=== PATIENT | female | born 1990 | race Caucasian/White ===

== ENCOUNTER 2023-08-25 11:24 | Outpatient (OUT) | payer OTHER, SELFPAY ==
[2023-08-25 11:52] LABS: Basophils Percent Auto 0.3 % (0.2-2.0); Eosinophils Absolute Auto 0.1 10^3/uL (0.0-0.7); Eosinophils Percent Auto 0.9 % (0.9-7.0); Hematocrit 43.9 % (36.0-48.0); Hemoglobin 14.5 g/dL (12.0-16.0); Immature Granulocytes Abs Auto 0.04 10^3/uL (0.00-0.03); Immature Granulocytes Pct Auto 0.4 % (0.0-0.5); Lymphocytes Absolute Auto 2.3 10^3/uL (1.2-3.8); Lymphocytes Percent Auto 24.8 % (20.5-60.0); Mean Corpuscular Hemoglobin 30.7 pg (26.7-34.0); Monocytes Absolute Auto 0.7 10^3/uL (0.3-0.8); Monocytes Percent Auto 6.9 % (1.7-12.0); Neutrophils Absolute Auto 6.3 10^3/uL (1.4-6.5); Neutrophils Percent Auto 66.7 % (43.0-75.0); Platelet Count 214 10^3/uL (150-450); Red Blood Count 4.72 10^6/uL (4.20-5.40); Red Cell Distribution Width 12.2 % (11.0-15.0); White Blood Count 9.4 10^3/uL (4.0-11.0)
[2023-08-25 14:36] LABS: Estimated Average Glucose 103 mg/dL; Glycohemoglobin A1C 5.2 % (4.5-6.2)
[2023-08-25 16:20] LABS: Alanine Aminotransferase 66 U/L (14-59); Albumin Globulin Ratio 1.1; Albumin Level 3.8 g/dL (3.4-5.0); Alkaline Phosphatase 88 U/L (46-116); Anion Gap 11.5; Aspartate Amino Transferase 33 U/L (15-37); BUN Creatinine Ratio 13.1; Bilirubin Total 0.6 mg/dL (0.2-1.0); Calcium 8.7 mg/dL (8.5-10.1); Carbon Dioxide 27.7 mmol/L (21.0-32.0); Chloride 104 mmol/L (98-107); Chol HDL Ratio 4.6; Cholesterol 254 mg/dL (<=200); Estimated GFR (African America >60 (>=60); Estimated GFR (Non-African Ame >60 (>=60); Free T3 2.33 pg/mL (2.18-3.98); Globulin 3.6 g/dL; Glucose 85 mg/dL (74-106); HDL Cholesterol 55 mg/dL (40-60); Potassium 4.2 mmol/L (3.5-5.1); Sodium 139 mmol/L (136-145); Thyroid Stimulating Hormone 2.559 uIU/mL (0.358-3.740); Total Protein 7.4 g/dL (6.4-8.2); Triglycerides 166 mg/dL (<=150); VLDL CHOLESTEROL 33.2 mg/dL
[2023-08-26 06:09] LABS: Insulin 27.1 uIU/mL (2.6-24.9)
== END 2023-08-25 11:25 | disposition home or self-care (01) ==
LOC: LAB 11:28
PROVIDERS: PCP Nurse Practitioner Family; Visit Provider Nurse Practitioner Family
DX: Z00.00 Encounter for general adult medical examination without abnormal findings (principal)
CPT/HCPCS: 36415; 80053; 80061; 83036; 83525; 84436; 84443; 84481; 85025

== ENCOUNTER 2024-01-21 11:10 | Outpatient (OUT) | payer OTHER, SELFPAY ==
--- NOTE | 2024-01-21 11:32 | XR_ITS ---
[address] [address] Patient Name: VALARIE ROBLEDO MRN: [id number] date: 1990 Sex: F Assigned Patient Location: [facility] Current Patient Location: Accession/Order Number: [id number] Exam Date: 01/21/2024 11:35 Report Date: 01/22/2024 07:48 At the request of: JOHN PEGUERO Procedure: XR chest 2V PROCEDURE: XR chest 2V DATE: 01/21/2024 11:35 AM EST COMPARISONS: None. CLINICAL INDICATION: 33 years Female Preop exam FINDINGS: The cardiomediastinal silhouette and pulmonary vasculature are within normal limits. The lungs are clear. There is no evidence of pleural effusion or pneumothorax. XR/XR chest 2V IMPRESSION: Chest radiograph is within normal limits. Electronically authenticated by: ONOFRE SOMMERS Date: 01/22/2024 07:48
== END 2024-01-21 11:11 | disposition home or self-care (01) ==
LOC: PST 11:11
PROVIDERS: PCP Nurse Practitioner Family; Visit Provider Obstetrics & Gynecology
DX: Z01.810 Encounter for preprocedural cardiovascular examination (principal); Z30.2 Encounter for sterilization; Z01.419 Encounter for gynecological examination (general) (routine) without abnormal findings
CPT/HCPCS: 71046; 87624; 88175

== ENCOUNTER 2024-01-21 20:09 | Outpatient (REF) | payer OTHER, SELFPAY | END 2024-01-21 20:10 | disposition home or self-care (01) | LOC: LAB 20:09 | PROVIDERS: PCP Nurse Practitioner Family; Visit Provider Physician Assistant | DX: Z01.419 Encounter for gynecological examination (general) (routine) without abnormal findings (principal) | CPT/HCPCS: 87624; 88175 ==

== ENCOUNTER 2024-01-27 06:12 | Day surgery (SDC) | payer OTHER, SELFPAY ==
[2024-01-21 11:38] VITALS: BP 115/80; PULSE 73; TEMP 36.2; O2SAT 99; BMI 36.9
[2024-01-27] VITALS (9 sets, daily range): BP systolic 107–165; BP diastolic 75–104; PULSE 70–102; TEMP 36.1–36.7; O2SAT 90–99; BMI 36.5
[2024-01-27 06:22] LABS: Basophils Absolute Auto 0.1 10^3/uL (0.0-0.1); Basophils Percent Auto 0.5 % (0.2-2.0); Eosinophils Absolute Auto 0.1 10^3/uL (0.0-0.7); Eosinophils Percent Auto 0.9 % (0.9-7.0); Hematocrit 39.4 % (36.0-48.0); Hemoglobin 13.1 g/dL (12.0-16.0); Immature Granulocytes Abs Auto 0.03 10^3/uL (0.00-0.03); Immature Granulocytes Pct Auto 0.3 % (0.0-0.5); Lymphocytes Absolute Auto 3.3 10^3/uL (1.2-3.8); Lymphocytes Percent Auto 32.8 % (20.5-60.0); Mean Corpuscular HGB Conc 33.2 g/dL (29.9-35.2); Mean Corpuscular Hemoglobin 30.8 pg (26.7-34.0); Mean Corpuscular Volume 92.7 fL (81.0-99.0); Mean Platelet Volume 11.1 fL (9.5-13.5); Monocytes Absolute Auto 0.7 10^3/uL (0.3-0.8); Monocytes Percent Auto 6.7 % (1.7-12.0); Neutrophils Absolute Auto 5.8 10^3/uL (1.4-6.5); Neutrophils Percent Auto 58.8 % (43.0-75.0); Platelet Count 190 10^3/uL (150-450); Red Blood Count 4.25 10^6/uL (4.20-5.40); Red Cell Distribution Width 12.4 % (11.0-15.0); White Blood Count 9.9 10^3/uL (4.0-11.0)
[2024-01-27 06:42] LABS: HCG Quantitative <1 mIU/mL
[2024-01-27] MEDS: LACTATED RINGER'S SOLUTION 1,000 ML 50 ML IV (06:52)
--- NOTE | 2024-01-27 08:22 | PM.ONB ---
Brief Operative Note Date of procedure: 01/27/24 Pre-op diagnosis general: desires permanent sterilization, multiparity Post-op diagnosis: same as pre-op Procedure: NAME OF PROCEDURE: robotic assisted bilateral laparoscopic salpingectomy PROCEDURE: The patient was taken back to the Operating Room where she was given general anesthesia without difficulty. She was then prepped and draped in the normal sterile fashion after being placed in a dorsal lithotomy position. A wet sponge stick was placed into the patient's vagina. Attention was then turned to the patient's abdomen, where a scalpel was used to make a small infraumbilical incision. The S retractors were then used to dissect the underlying layers until the fascia could be seen. The fascia was then grasped with Min clamps and tented up. A knife was then used to make a small incision to the fascia. The muscle was identified, at that time two sutures of #0 Vicryl on a GI needle was then used and placed through the fascia. the peritoneum was then identified and entered bluntly. The 10-4 Nai was then placed into the patient's abdomen. This was confirmed with direct visualization of the bowel, using the laparoscope. The patient's abdomen was then insufflated using approximately 4 liters of CO2 gas. Survey of the patient's abdomen demonstrated ovaries were normal in appearance as well as both tubes and uterus. A second and third rt and lt lateral robotic ports which were 8 mm in size, was then placed after the skin incision was made under direct visualization . the robotic arms were engaged. The patient's tube on the patient's right side was identified and tented up using a grasper, the ligasure apparatus was then used to come across the mesosalpingx from the fimbriated end to the insertion site at the uterus, the tube was then amputated and removed in its entirety. This was done on the contralateral side. The tubes were the removed from the patients abdomen. Excellent hemostasis was noted. The lateral ports were then moved under direct visualization with excellent hemostasis. All instruments were removed from the patient's abdomen. The fascia was closed using the #0 Vicryl on GI needle. The skin was closed using 4-0 Vicryl subcuticularly. All instruments were removed from the patient's vagina as well. The patient was taken out of the dorsal lithotomy position and placed in the supine position and taken to recovery in stable condition. Sponge, lap and needle counts were correct x2. Anesthesia: LIANGA Surgeon: Nas Redman Electrical And Electronic Assembler: Shari Mejia Estimated blood loss (mL): 5 Pathology: other (tubes) Condition: stable Disposition: PACU Urinary Catheter Management Urinary Catheter Management Urethral: Cath placed during this visit: no
[2024-01-27] MEDS: LACTATED RINGER'S SOLUTION 1,000 ML 150 ML IV (09:29)
--- NOTE | 2024-01-27 09:53 | PC.NURSE ---
Up to bathroom and unable to void
--- NOTE | 2024-01-27 10:14 | PC.NURSE ---
Denies urge to void
--- NOTE | 2024-01-27 10:35 | PC.NURSE ---
Voided clear yellow without difficulty
== END 2024-01-27 10:37 | disposition home or self-care (01) ==
PROVIDERS: PCP Nurse Practitioner Family; Visit Provider Obstetrics & Gynecology
PROC: (CPT 840; principal; 2024-01-27 07:30)
DX: Z30.2 Encounter for sterilization (principal); F41.0 Panic disorder [episodic paroxysmal anxiety]; Z79.899 Other long term (current) drug therapy; Z87.891 Personal history of nicotine dependence
CPT/HCPCS: 58661; 36415; 84702; 85025; 88302; J1100; J1885; J2250; J2405; J2704; J2710; J3010

== ENCOUNTER 2024-05-31 10:50 | Outpatient (OUT) | payer OTHER, SELFPAY ==
[2024-05-31 11:15] LABS: Basophils Absolute Auto 0.1 10^3/uL (0.0-0.1); Basophils Percent Auto 0.7 % (0.2-2.0); Eosinophils Absolute Auto 0.1 10^3/uL (0.0-0.7); Eosinophils Percent Auto 0.8 % (0.9-7.0); Hematocrit 43.4 % (36.0-48.0); Hemoglobin 14.3 g/dL (12.0-16.0); Immature Granulocytes Abs Auto 0.03 10^3/uL (0.00-0.03); Immature Granulocytes Pct Auto 0.3 % (0.0-0.5); Lymphocytes Absolute Auto 2.7 10^3/uL (1.2-3.8); Mean Corpuscular HGB Conc 32.9 g/dL (29.9-35.2); Mean Corpuscular Hemoglobin 30.7 pg (26.7-34.0); Mean Corpuscular Volume 93.1 fL (81.0-99.0); Mean Platelet Volume 10.9 fL (9.5-13.5); Monocytes Absolute Auto 0.6 10^3/uL (0.3-0.8); Monocytes Percent Auto 6.4 % (1.7-12.0); Neutrophils Absolute Auto 5.5 10^3/uL (1.4-6.5); Neutrophils Percent Auto 61.8 % (43.0-75.0); Platelet Count 218 10^3/uL (150-450); Red Blood Count 4.66 10^6/uL (4.20-5.40); Red Cell Distribution Width 12.3 % (11.0-15.0); White Blood Count 8.9 10^3/uL (4.0-11.0)
[2024-05-31 11:37] LABS: Alanine Aminotransferase 36 U/L (14-59); Albumin Level 3.6 g/dL (3.4-5.0); Alkaline Phosphatase 106 U/L (46-116); Anion Gap 12.2; Aspartate Amino Transferase 15 U/L (15-37); BUN Creatinine Ratio 14.6; Bilirubin Total 0.3 mg/dL (0.2-1.0); Calcium 8.8 mg/dL (8.5-10.1); Carbon Dioxide 27.1 mmol/L (21.0-32.0); Chloride 103 mmol/L (98-107); Cholesterol 255 mg/dL (<=200); Estimated GFR (African America >60 (>=60 mL/min/1.73m^2); Estimated GFR (Non-African Ame >60 (>=60 mL/min/1.73m^2); Globulin 3.5 g/dL; Glucose 89 mg/dL (74-106); HDL Cholesterol 64 mg/dL (40-60); Potassium 4.3 mmol/L (3.5-5.1); Sodium 138 mmol/L (136-145); Total Protein 7.1 g/dL (6.4-8.2); Triglycerides 247 mg/dL (<=150); VLDL CHOLESTEROL 49.4 mg/dL
[2024-05-31 11:39] LABS: Estimated Average Glucose 100 mg/dL; Glycohemoglobin A1C 5.1 % (4.5-6.2)
[2024-06-01 04:07] LABS: Insulin 86.1 uIU/mL (2.6-24.9)
== END 2024-05-31 10:51 | disposition home or self-care (01) ==
LOC: LAB 10:53
PROVIDERS: PCP Nurse Practitioner Family; Visit Provider Nurse Practitioner Family
DX: E78.5 Hyperlipidemia, unspecified (principal); R73.09 Other abnormal glucose
CPT/HCPCS: 36415; 80053; 80061; 83036; 83525; 85025

== ENCOUNTER 2024-07-15 11:11 | Outpatient (OUT) | payer OTHER, SELFPAY ==
--- NOTE | 2024-07-15 11:16 | XR_ITS ---
The [address] [address] Patient Name: VALARIE ROBLEDO MRN: [id number] date: 1990 Sex: F Assigned Patient Location: [facility] Current Patient Location: [facility] Accession/Order Number: [id number] Exam Date: 07/15/2024 11:44 Report Date: 07/15/2024 11:52 At the request of: DYLAN POPE Procedure: XR hip LT 2V w/ pelvis CLINICAL DATA: Acute low back pain radiating to the left hip over the past month. No injury. LUMBAR SPINE - 2 views COMPARISON: CT 02/04/2021 AP and lateral views were obtained. No acute fractures or displacement are visualized. There is no disproportionate disc space narrowing. There is minor endplate spurring and lower lumbar facet disease. The SI joints show slight sclerosis. There are no paraspinal soft tissue abnormalities. XR/XR hip LT 2V w/ pelvis IMPRESSION: MINIMAL DEGENERATIVE CHANGE. NO ACUTE BONY FINDINGS. LEFT HIP WITH AP PELVIS - 3 views COMPARISON: 04/18/2021 AP view of the pelvis as well as AP and frog-lateral views of the left hip were obtained. No fracture or dislocation is identified. The hip joint spaces are maintained. There is no significant arthritic disease. No soft tissue abnormalities are present. IMPRESSION: NO ACUTE BONY FINDINGS. Impression dictated by: Eda Hawkins M.D. 07/15/2024 11:52 AM Dictation Location: [place] [address] Electronically authenticated by: [id number] Y Date: 07/15/2024 11:52
--- NOTE | 2024-07-15 11:16 | XR_ITS ---
The [address] [address] Patient Name: VALARIE ROBLEDO MRN: [id number] date: 1990 Sex: F Assigned Patient Location: [facility] Current Patient Location: [facility] Accession/Order Number: [id number] Exam Date: 07/15/2024 11:44 Report Date: 07/15/2024 11:52 At the request of: DYLAN POPE Procedure: XR hip LT 2V w/ pelvis CLINICAL DATA: Acute low back pain radiating to the left hip over the past month. No injury. LUMBAR SPINE - 2 views COMPARISON: CT 02/04/2021 AP and lateral views were obtained. No acute fractures or displacement are visualized. There is no disproportionate disc space narrowing. There is minor endplate spurring and lower lumbar facet disease. The SI joints show slight sclerosis. There are no paraspinal soft tissue abnormalities. XR/XR lumbar spine 2-3V IMPRESSION: MINIMAL DEGENERATIVE CHANGE. NO ACUTE BONY FINDINGS. LEFT HIP WITH AP PELVIS - 3 views COMPARISON: 04/18/2021 AP view of the pelvis as well as AP and frog-lateral views of the left hip were obtained. No fracture or dislocation is identified. The hip joint spaces are maintained. There is no significant arthritic disease. No soft tissue abnormalities are present. IMPRESSION: NO ACUTE BONY FINDINGS. Impression dictated by: Eda Hawkins M.D. 07/15/2024 11:52 AM Dictation Location: [place] [address] Electronically authenticated by: [id number] Y Date: 07/15/2024 11:52
== END 2024-07-15 11:12 | disposition home or self-care (01) ==
LOC: RAD 11:13
PROVIDERS: PCP Nurse Practitioner Family; Visit Provider Nurse Practitioner Family
DX: M54.30 Sciatica, unspecified side (principal); M51.369 Other intervertebral disc degeneration, lumbar region without mention of lumbar back pain or lower extremity pain
CPT/HCPCS: 72100; 73502

== ENCOUNTER 2024-11-22 10:33 | Outpatient (OUT) | payer OTHER, SELFPAY ==
--- OUTSIDE RECORDS SUMMARY | 2024-11-22 10:39 | XMS_ITS | Encounter Summary ---
Author Organization [facility] Address [address] [place] [address] Care Team Providers Care Cloth Roll Winder Name Role Phone Unavailable Primary Care Provider Unavailabl e Encounter Details Date Type Department Care Team (Late Contact Info) Description 01/27/2024 Abstract [facility] Lucio PAINTER [address] [facility] [place] [phone] Nas Redman DO [address] [facility] [address] [place], [facility]11 Social History Tobacco Use Types Packs/Day Years Used Date Smoking Tobacco: Never Assessed Comments Unknown Sex and Gender Information Value Date Recorded Sex Assigned at Female 11/10/2023 10:17 AM EDT Legal Sex Female 11:49 PM EDT Gender Identity Female 11/10/2023 10:17 AM EDT Sexual Orientation Straight 11/10/2023 10 :17 AM EDT documented as of this encounter Plan of Treatment Upcoming Encounters Date Type Department Care Team (Late st Contact Info) Description 01/23/2025 2:00 PM EST Office Visit [facility] Lucio PAINTER [address] [facility] [place] [address] Terri Nair PA [address] [facility] [address] [place], [facility]11 documented as of this encounter Visit Diagnoses Not on filedocumented in this encounter
--- OUTSIDE RECORDS SUMMARY | 2024-11-22 10:39 | XMS_ITS | Encounter Summary ---
Author Organization [facility] Address [address] [facility] [place] [address] Care Team Providers Care Fur Designer Name Role Phone Unavailable Primary Care Provider Unavailabl e Encounter Details Date Type Department Care Team (Late Contact Info) Description 02/05/2024 Orders Only JJ PAINTER [address] [address] [place] [phone] La Montoya MA [address] [place] [address] Social History Tobacco Use Types Packs/Day Years [...] Description 01/23/2025 2:00 PM EST Office Visit [facility] PAINTER [address] [facility] [place] [phone] Terri Nair PA [address] [place], [place] [phone] documented as of this encounter Procedures Procedure Name Priority Date/Time Associated Diagnosis Comments PAP SMEAR Routine 01/21/2024 12:00 AM EST documented in this encounter Results * Pap Smear (01/21/2024 12:00 AM EST) Swab Cervical swab / Unknown us Terri [facility] ORDERABLES Final Re sult EXTERNAL LAB documented in this encounter Visit Diagnoses Not on filedocumented in this encounter
--- OUTSIDE RECORDS SUMMARY | 2024-11-22 10:39 | XMS_ITS | Clinical Summary ---
Author Organization [facility] Address [address] [place] [address] Care Team Providers Care Arrt Technologist Name Role Phone Unavailable Primary Care Provider Unavailabl e Allergies No known active allergies Medications Lexapro 20 MG tablet 1 (one) time each day at the same time 08/18/2023 Active hydrOXYzine HCl (Atarax) 10 MG tablet TAKE 1 TABLET BY MOUTH EVERY DAY NEEDED for 30 Active desogestrel-ethi nyl estradiol (Apri) 0.15-30 MG-MCG tabletIndication s:Encounter for IUD removal Take 1 tablet by mouth Daily for 28 days Take 1 tablet by mouth daily 28 tablet 6 11/30/2023 Active phentermine (Adipex-P) 37.5 MG tablet Take 37.5 mg by mouth in the morning. Take before meals. 12/28/2023 Active Social History Tobacco Use Types Packs/Day Years Used Date Smoking Tobacco: Never Assessed Comments Unknown Sex and Gender Information Value Date Recorded Sex Assigned at Female 11/10/2023 10:17 AM EDT Legal Sex Female 11:49 PM EDT Gender Identity Female 11/10/2023 10:17 AM EDT Sexual Orientation Straight 11/10/2023 10 :17 AM EDT Last Filed Vital Signs Vital Sign Reading Time Taken Comments Blood Pressure 108/60 01/04/2024 2:38 PM EST Pulse - - Temperature - - Respiratory Rate - - Oxygen Saturation - - Inhaled Oxygen Concentration - - Weight 94.3 kg (207 lb 12.8 oz) 024 2:38 PM EST Height 160 cm (5' 3 ) 01/04/2024 2:38 PM EST Body Mass Index 36.81 01/04/2024 2:38 PM EST Plan of Treatment Upcoming Encounters Date Type Department Care Team (Late st Contact Info) Description 01/23/2025 2:00 PM EST Office Visit NOM[facility] ESCUDEROGYEkaterina [address] [facility] [place] [phone] Terri Nair PA [address] [facility] [address] [place], [id number] Insurance [employer]
--- OUTSIDE RECORDS SUMMARY | 2024-11-22 10:39 | XMS_ITS | Encounter Summary ---
Author Organization [facility] Address [address] [place] [address] Care Team Providers Care Asphalt Heater Tender Name Role Phone Unavailable Primary Care Provider Unavailabl e Encounter Details Date Type Department Care Team (Late Contact Info) Description 01/27/2024 Abstract [facility] Lucio PAINTER [address] [facility] [place] [phone] Nas Redman DO [address] [facility] [address] [place], [facility]11 Social History Tobacco Use Types Packs/Day Years [...] EST Office Visit [facility] Lucio PAINTER [address] [facility] [place] [phone] Terri Nair PA [address] [facility] [address] [place], [facility]11 documented as of this encounter Visit Diagnoses Not on filedocumented in this encounter
--- OUTSIDE RECORDS SUMMARY | 2024-11-22 10:41 | XMS_ITS | CCD ---
Author Organization [facility] Care Team Providers Care Technical Testing Engineer Name Role Phone CRISTÓBAL DEJESUS Unavailable Unavailable CRISTÓBAL DEJESUS Unavailable Unavailable VADIM HERRING Unavailable UnavailKALEIGH Quezada Unavailable Unavailab le LUE .DOREEN Admitting Unavailable LUE .DOREEN Attending Unavailable [facility] Unavailable ILANA, DR BAM Nevarez Consulting Unavailable LUE .DOREEN Consulting Unavailable ROXANNE, DR MILLS Admitting Unavailable ROXANNE, DR MILLS Attending Unavailable [facility] Unavailable DR LINA OLIVEIRA Consulting Unavailable LUE ., DOREEN Miller Admitting Unavailable LUE .DOREEN Attending Unavailable [facility] Unavailable LUE .DOREEN Consulting Unavailable LUE ., DOREEN M Admitting Unavailable LUE ., DOREEN Miller Attending Unavailable [facility] Unavailable DR CRISTÓBAL WATSON V Consulting Unavailable SENG LONDON Consulting Unavailable LUE .DOREEN Consulting Unavailable Unavailable Primary Care Provider UnavailJOHN Gardner Attending Unavailable JOHN REDMAN Attending Unavailable TERRI MONTIEL Attending Unavailable John Redman Attending Unavailable John Redman Admitting Unavailable Medications Current Medications Medication Drug Class(es) Dates Sig (Normalized) Sig (Original) desogestrel 0.15 mg / ethinyl estradiol 0.03 mg oral tablet (5 sources) Progestin, Estrogen Start: 11-30-2023 take 1 tablet by mouth once daily, then take 1 tablet by mouth once daily desogestrel-ethi nyl estradiol (Apri) 0.15-30 MG-MCG tablet Indications: Encounter for IUD removal Take 1 tablet by mouth Daily for 28 days Take 1 tablet by mouth daily 28 tablet 6 11/30/2023 Active escitalopram 20 mg oral tablet (6 sources) Serotonin Reuptake Inhibitor Start: 08-18-2023 Lexapro 20 MG tablet 1 (one) time each day at the same time 08/18/2023 Active hydrOXYzine hydrochloride 10 mg oral tablet (6 sources) Antihistamine take 1 tablet by mouth once daily as needed hydrOXYzine HCl (Atarax) 10 MG tablet TAKE 1 TABLET BY MOUTH EVERY DAY NEEDED for 30 Active phentermine hydrochloride 37.5 mg oral tablet (6 sources) Sympathomimetic Amine Anorectic Start: 12-28-2023 take 1 tablet by mouth before mealtime phentermine (Adipex-P) 37.5 MG tablet Take 37.5 mg by mouth in the morning. Take before meals. 12/28/2023 Active Problems Active Problems Problem Classification Problem Date Documented Date Episodic/Chronic Contraceptive and procreative management (1 source) Sterilization requested; Translations: [Encounter for sterilization] 01-04-2024 Episodic Substance-related disorders (1 source) Nicotine dependence, cigarettes, uncomplicated; Translations: [NICOTINE DEPEND CIGARETTES UNCOMP] Onset: 03-13-2021 Chronic Unclassified (1 source) Unknown / UNK(Unknown) Onset: 07-23-2016 Unclassified (1 source) CONTACT W/AND (SUSP) EXPOS COVID-19; Translations: [CONTACT W/AND (SUSP) EXPOS COVID-19] Onset: 03-06-2021 Past or Other Problems Problem Classification Problem Date Documented Da te Episodic/Chronic Calculus of urinary tract (8 sources) Calculus of kidney; Translations: [Calculus of ureter] Onset: 03-06-2021 Episodic Unclassified (1 source) Scheduled Induction Onset: 07-23-2016 Results Test Name Value Interpretation Reference Range Facility IGP,APTIMA HPV,AGE GDLNon AGE GDLN ACOG TESTING Note . [facility] Comment on above: TESTS RESULT FLAG UN ITS REF RANGE LAB Clinician Provided Cytology Information Source.............Cervix No. of containers..01 ThinPrep Vial Age Algo ACOG Sherry... 30-65 FLAG LEGEND: L-Low Normal,H-High Normal,LL-Alert Low,HH-Alert High <-Panic Low,>-Panic High,A-Abnormal,AA-Critical Abnormal Performed at: 01 =[address] [address] Linda Randle MD, HPV APTIMA Negative Negative [facility] Comment on above: This nucleic acid am plification test detects fourteen high- risk HPV types (16,18,31,33,35,39,45,51,52,56,58,59,66,68) without differentiation. Performed at: =[address] [id number] Rehabilitation Construction Specialist: Linda Randle MD, Phone: [phone] Performed at: [address] [id number] Rehabilitation Construction Specialist: Linda Randle MD, Phone: [phone] IGP, APTIMA HPV, RFX 16/18,45 Note . [facility] Comment on above: TESTS RESULT FLAG U NITS REF RANGE LAB DIAGNOSIS: 02 NEGATIVE FOR INTRAEPITHELIAL LESION OR MALIGNANCY. REACTIVE CELLULAR CHANGES AND/OR REPAIR ARE PRESENT. Specimen adequacy: 02 Satisfactory for evaluation. Endocervical and/or squamous metaplastic cells (endocervical component) are present. Performed by: 03 Sahara Frederick, Buffing Machine Operator Semiautomatic (ASCP) Electronically si... Linda Randle MD, Pathologist . 02 Note: Note 02 The Pap smear is a screening test designed to aid in the detection of premalignant and malignant conditions of the uterine cervix. It is not a diagnostic procedure and should not be used as the sole means of detecting cervical cancer. Both false-positive and false-negative reports do occur. Test Methodology: Note 02 This liquid based ThinPrep(R) pap test was screened with the use of an image guided system. HPV Genotype Reflex Note 02 Criteria not met, HPV Genotype not performed. FLAG LEGEND: L-Low Normal,H-High Normal,LL-Alert Low,HH-Alert High <-Panic Low,>-Panic High,A-Abnormal,AA-Critical Abnormal Performed at: 02 [address] [facility] [address] [address] Linda Randle MD, 03 DANIELSON [facility] [address] [address] Dionna Dudley PhD, BRUSH-SPATULA CERVIX [facility] ALL CBC WITH AUTO DIFFon BASOPHILS ABSOLUTE AUTO 0.1 [facility] Basophils/100 WBC (Bld) 0.5 % 0.2 - 2.0 % [facility] Eosinophils/100 WBC (Bld) 0.9 % 0.9 - 7.0 % [facility] Erythrocyte distribution width (RBC) [Ratio] 12.4 % 11.0 - 15.0 % [facility] Hematocrit (Bld) [Volume fraction] 39.4 % 36.0 - 48.0 % [facility] Hemoglobin (Bld) [Mass/Vol] 13.1 g/dL 12.0 - 16.0 g/dL [facility] IMMATURE GRANULOCYTES ABS AUTO 0.03 [facility] Immature granulocytes/100 WBC (Bld) 0.3 % 0.0 - 0.5 % [facility] LYMPHOCYTES ABSOLUTE AUTO 3.3 [facility] Lymphocytes/100 WBC (Bld) 32.8 % 20.5 - 60.0 % [facility] MCH (RBC) [Entitic mass] 30.8 pg 26.7 - 34.0 pg [facility] MCHC (RBC) [Mass/Vol] 33.2 g/dL 29.9 - 35.2 g/dL [facility] MCV (RBC) [Entitic vol] 92.7 fL 81.0 - 99.0 fL [facility] MONOCYTES ABSOLUTE AUTO 0.7 [facility] Monocytes/100 WBC (Bld) 6.7 % 1.7 - 12.0 % [facility] NEUTROPHILS ABSOLUTE AUTO 5.8 [facility] Neutrophils/100 WBC (Bld) 58.8 % 43.0 - 75.0 % [facility] Platelet mean volume (Bld) [Entitic vol] 11.1 fL 9.5 - 13.5 fL [facility] TBH EO # 0.1 [facility] TB PLT [address] [facility] RBC 4.25 [facility] WBC 9.9 [facility] Escobar 01-27-2024 L - -------- Specimen: [id number] Received: 01/27/24 Status: SAE May Num: [id number] Spec Type: Surgical Subm Dr: John Redman Tissues: A Fallopian Tube - Sterilization (BILAT FALL TUBES) Procedures: HE/2, Gross/Micro L2 -------- Age/ Patient Sex Location Account Attending Physician -------- Jes Garrett 33/F [place] [id number] John Redman -------- SPEC NUM: [id number] RECD: 01/27/24 STATUS: SAE LINDSAYLeda NUM: [id number] GIGI: 01/27/[address] [facility] [address]: John Redman ENTERED: 01/27/[address] [facility] DR: Lucio,Lab SPEC TYPE: Surgical DEPT: CALVIN SERRANO ENTERED BY: [id number] RECV BY: [id number] ORDERED: HE/2, Gross/Micro L2 ORDERED: HE/2, Gross/Micro L2 Pathological Diagnosis Bilateral fallopian tubes, segmental resection: No significant pathologic abnormality. Clinical Information Request for sterilization Gross Description Part A is received in formalin labeled with the patients name, date of , and bilateral fallopian tubes are bilateral, unoriented fallopian tubes with fimbriated distal ends, 5.5 cm in length by 0.8 cm in diameter, and 5.8 cm in length by 0.7 cm in diameter. The serosa is rhodes-purple, smooth and glistening. Serial sections reveal pinpoint lumen within each segment. Cassettes: A1 Entirety of trisected fimbriated end and credit resolution representative cross-sections from shorter fallopian tube A2 Entirety of trisected fimbriated end and credit resolution representative cross-sections from longer fallopian tube (2, ss, [id number] A) TORRI -------- Specimen: [id number] Received: 01/27/24 Status: SAE May Num: [id number] Spec Type: Surgical Subm Dr: John Redman Tissues: A Fallopian Tube - Sterilization (BILAT FALL TUBES) Procedures: ELISEO/Keisha Wise/Luis Enrique L2 -------- Patient: Jes Garrett [id number] (Continued) -------- Specimen: [id number] Received: 01/27/24 (Continued) Signed (signature on file) Azalia Coker MD 01/28/24 1352 -------- Specimen: [id number] Received: 01/27/24 Status: SAE May Num: [id number] Spec Type: Surgical Subm Dr: John Redman Tissues: A Fallopian Tube - Sterilization (BILAT FALL TUBES) Procedures: HE/2, Keisha/Micro L2 -------- Patient: Jes Garrett [id number] (Continued) -------- Specimen: [id number] Received: 01/27/24 (Continued) CPT Codes 65431 -------- -------- Specimen: [id number] Received: 01/27/24 Status: SAE May Num: [id number] Spec Type: Surgical Subm Dr: John Redman Tissues: A Fallopian Tube - Sterilization (BILAT FALL TUBES) Procedures: HE/2, Gross/Micro L2 -------- Patient: TamiJes [id number] (Continued) -------- Signed (signature on file) Azalia Coker MD 01/28/24 1352 Normal [facility] Covid-19 PCR (CVDTB)on SARS-CoV-2 (COVID-19) RNA PAULO+probe Ql (Unsp spec) Detected Abnormal NOT DETECTED [facility] Comment on above: Result Comment: This test is not yet approved or cleared by the [place] FDA. When there are no FDA-approved or cleared tests available, and other criteria are met, FDA can make tests available under an emergency access mechanism called an Emergency Use Authorization (EUA). The EUA for this test is supported by the [place] of Health and Human Service's (HHS's) declaration that circumstances exist to justify the emergency use of in vitro diagnostics for the detection and/or diagnosis of the virus that causes COVID-19. This EUA will remain in effect (meaning this test can be used) for the duration of the COVID-19 declaration justifying emergency of IVDs, unless it is terminated or revoked by FDA (after which the test may no longer be used). Performed By: #### C VDTB #### [facility] [address] [place] [address] Dr. Bryson Spangler Patient Correspondenceon Patient Correspondence [id number] #1.00CD:127 Normal [facility] Coding Summary.on 04-24-2021 Coding Summary. CD:[id number] G h0bWw+PGhlYWQ+MG9QMSW dY99vwSUbtW4QJ2eFQJ1W CMNZBMVZPE3BPM6czSQ2I VazZ4PzlrWk UsstvZFfBA28ZMr6HKO3b DpcKMjkcA3ztGEaE9l0Zg EsHQ62uN11QClaHIMeApF 3LjZpbjsgbWFy O5biEsHsuYMyYer+PHRhY mxlIHdpZHRoPScxMDAlJy JraUmzJS8aSk1jYXEbFUH vbGxhcHNlOiBj p6frUHUyCEguJY6tfOzdZ 5CqxRG8YJLjz6r1Cl89kK I+HSFbQWS0zFbbLTefu50 2PiZpq5tvATI1 qWBxAUmpTTA2C88yt1H2X LCnOSCbVFN4sEO8oT1yqU zskwziD3TrvVAvWbH6LBW 9oWVjkM1bnIbd fotvtW9yVqo+X70GHZ8RX AOVKH8ELac1V0LqOwhmfH I+MH64HUCcCV10wZWqxAH vq7zebYd9MoUi KUKwFGO7aWtcSOapi2ZwB SVeB69meHHpa5Z3RBWphJ afcVJpDkWlrBO7pK2cJKs xeklin9pwyowz Cweha3eiqd41yF62T94dJ HraRMAzFKS7FTLwSFPoyS hpdo8scE4uDm5+SLhzu4p ut0yvgPn1CmLg NOMxftTayKxwYGP1p8ZfA x67L8ZomFoil4CbVhy8aq 33zUThf8N3vRK7VNqhCBP dvM5zLHfhMdN4 ZIHmRjBfdC31vOYbSElxF b3kjKstuKtbXK8mXPVqus gsCMRvgX7wLZOslLZemKs wPI7fVRZtmkza d912DrYlWVO1EUVlpUWsB 0HzwT0mAoFqSVRtWXTpP5 OclHRgFJztI368HHnfZhT 6DPGaetWmW3Zq XAFpaSfsOqK9s1X2Go0Qr 0VvntbbBUE2CAwqBLLbMk S3NcJlVwD7D3HtZzd9JKE ckKaqET0fJ3Hy PWZqbasktmyntSL6AYRnH SAdxA43fBKfXEviLe9ox4 C4r093RRMfBEFmvK93Lw9 udDogMTBwdCBU wM2sijsie9hoawbpGlYxR EOxHXd2YRw3MBYziNmrGl XkNMJ6FuO6NMM9dDRbcV6 fxPoitbizmQ4f Oyc+R64blG1pPMB1SZW9k mtkEOKsqpKlXL22NW19I9 RyPjwvdGFibGU+PGRpdiB ahUgyBS3sNaFh j5cgw3WrDUceZ9XmRLCfZ FhdOal2AEMeKQT9lWX2iC 3kDFEnUNqqv0K9fJK5Q1N lemZeda5gv4bt YSSfJDcmJ08xjGXur4J6U BMypBU1YADspRttTiVlgD 93Oyc+BUEmbZqgz7EqKgg xi1fjh8jmcAy5 JoFhAWXpenEmaDnyJPF4f 6SoJt34V55wXJjaOIJjAY RpEFVeJBJktMugme8izQ5 wIi8+PGNvbCB3 lBY7fS3eDJAvOyY8QUlaD 584GhRnnDMaRxpcg7lnt8 jkcAd3HiBiGAXtniWihSl mIEL5u5DkKm64 S59xXAgaIMEqXCBiEUTeD UVqoBvmnu7xaH3yLg8+PC 7xi2bpmw78pE58mKI+PHR wFFH3bEvaRSyf TOVxaI0jMNuyGwU2XAXxS hFzfL41kUYsMRpnLm8rjT qflTaeBU9lYFWixiqlt79 7JdFef9bsLPIt pDQuTLhlYXI3L29uc9D7M PGvCWFpFPL9mXK2zB2pjV lnbjogbGVmdDsgdmVydGl bUIktCJxzQ087 IHRvcDsnPlBhdGllbnQgT aThTYm1X0YdMci6ZOZazO xuGY2gsKYjCXihGp6dmFa mhFfbDK9uYYOw oylbt553EnPmw3cmAPQgs KRgFImlRDA4B11zz4K2TQ MoKUMtINB0nYG7cA1yaQq nbjogbGVmdDsg frLzjNigPBaiZHayL807F HRvcDsnPkJpcnRoIERhdG W2ZV98HN05wFJhc2M0oMV 7Z6SmYUToamkw mjkegKV4VADdZEEtfI98C c2beSlnYs5mLLAnSXH6MV AjnRAuY6BhnY7vSsVhUGW aFSZtG0EbsNRc KTqkI812RFdwTyH3XWOgh fNzS9RbANRygFrzCgE0i4 M2Ic4ET0U5IE32SE21dDR fm6Z4uPA1E9Ip KJRvrrhxukvrxYN1VXDgG CVetX28Yq3gwMjsWm9mDH BtXSZ9SBGssGOmM4ZatV6 yOiAjMDAwMDAw Z4YqtPTqKHqbF477VNdaI pI3BNPcauAmW2UoTXCduA wfLvC3c8Z8Ag9ZHNo5WR9 3MS82mRNed8X3 vEO1I2BvVPQyrhmiufmmm LZ1MMHqVARxiC77Hg3faU ohKp9pSZTeFPS2QGGqrNC oG6VeyF2mZsNr DTOpWJUgP0AlwUAfTEdrS 667OEswVwC3IVReulTqD3 XyCBPrqLwvClU6j4G8As4 NMXDhWZ20NKD5 yGD7UY91FO26J2DnWqrxy GFibGU+PHRhYmxlIHdpZH RoPScxMDAlJyBzdHlsZT0 zVu2xJNYwVFJi jXahiSZuDhMlx7qsMJIyC NxqAU5mxZezM2TtgQI0MT Tnn5e9Ou65A22oG2CotNH +GDCkbJO1zYQ3 pG6yZhWqNqI5CPmgR591A jCdhXQiNalqq0cmy4pugD k2AiO6KTMotbMucIajBBH 3b5WkLw14U17u IHdpZHRoPSIxNSUiIHZhb Xhcas5oaM1rTv2+PGNvbC Y4zZY1nJ1mWnRnUxA7UNh dL745AyKhoQAl Wahlc1jxi5amlXf5KuVfT URmtjVklEetIBS8r7WkIw 54S4ErwBcha5FsUgl3ja5 7zJNac1R4oMB2 K0TjNWGsoozbxMMylZmkE S7cIGRiwwokDTFqxL1iQM NwY3r3QnNkVoW0TRwsP1Q duzC0DOZoyTDr GVexIMR6E99al8C0MIPvW ZHmXDC7rVO8kG3qdQmuqh ogbGVmdDsgdmVydGljYWw tVFvaD258CMSe iZlrEJXrmR8lTKKxgNGum XisTU5hMLBllvneIr9ANf LqOFoUYSUSPF76L1DsQpj 1VBAwpTdtAS3c aSPjDKtuOw2lxRhoaUbqF G6oNDVicwygSVNsoP1wTH YyqFNevWjiIQ4aSJEelyt vx204PlZuTNS0 TXMxuEKrY6XzkL0lPzUfK MGbQVGoS9JgfWCfRHihQ0 23WMoxTzI3QVFribJnB3F sLWFsaWduOiB0 s7A6Hy9xHB6jVW6zWXr4Z F53QG38sEHaa8G2jYT4M7 XkEPYtausbmervsDQ6DHU cAPPyhA67hJMm EMmeCk4ft5H1c215HXUeJ XRzcQ37Af2isSojPLQcfY NTuY8pzxrtx7dmqxauTyM lKJCxKOl4UTk7 HBRjsCjzEvJaWOT1XcM6K VC5dPPazI4xtRvymsucbX 9wOyc+LyPaJDYkagY1N8E vVpf1MTXzbZiz WZ9hqCZfBSulQf3wdWqnj OyqIV1wGCIkbnovWRYdeW 6lIPEbeAWabGixXW9eEMQ rjvnjc481TqZw IYX5UICjbQJlO1HmyK6uD mKzUJYvBTWqT4WblWJeNS gzO917EXgiOoV6VAOmjqH cE4YbPHXqlKbg ByJ5p0B6Uw7UEV5ugVU6I 6VxOno1TJHzwYayDK9voX CgMThwTn2qmIjakPizDQ9 wNTBpbjtwYWRk nX0dJAJiiNGedInuNO6qZ SFbwgxcz913FfZgICY6WY ApjKYqR5DyqM6gDeIyXBR eDDYvP2PvwAQo LEypA958ANirOqM6TRSsn zLtL7AgKUYrrPscZnS4g4 P4Hp1FwPOxPGCiRC59RU1 5EG94Z2NdEafh dGFibGU+PHRhYmxlIHdpZ HRoPScxMDAlJyBzdHlsZT 7yKk6oRGRdWPOelObwzBR kHhMlk9jvPSFy UZeoFZ7xhWrcH8RhdEO7W MBhg3w6Pa04O52uV3JxbV A+BIFrhGL2aBG7hW9pFgN rMmI2XHvaT393 NqTizAUqIqugy8joa3bpu Dh0WxIrOOPhztIxcZomAY Y2q4ClNf39M10fKBfwWLP oPSIyMCUiIHZh oBevcm3ynD2iSd2+PGNvb IG9kLV4jP8lKbJxKwJ9ND pbA368BuCycGCgMwcbN52 lE1TfaCE+PHRy Qnw4YSWscWhdMC4cyCPmD IrrDf5hKBS3ViHiFbKaTU njY3YcWJThdasutajgqWY 1GWKoZQUykA61 Em2ubCceEk4nFBTqYDU0P FYjwXUaQ3FcnN6eLxVoIL NdBANsZ5LzhPBdGOfqB43 4YMtyXfY8DHGq vjQaT5OyMNBmkVaeTuK0k 0G9Yt3WiVbsgBJwYH5pYg TuYBr8N6CmPmg6MBMvtSr oCR8mqAFkHWhy Jy3hyYbgxFoeGY5kFWAyf qexm012ZsEui0fdKRWneY PdYAwuVON5E16we8S8IUH bNCQmSIP4gXM2 kA5zyBlgatkcyLQaoVump wFvbUbwSHuwDMfwT580QU FzwTqzJfQKEti2T0YnDra 4ZNUayJsaLU6h wAKiCDstYj8nlFhccJmaD J2bBZJphdvoq429PcZmh7 vjAAOuvJCeVMupRIF6E34 gl7W0FZQiJUSe XTX5wBN9vV5siRlskabsx GVmdDsgdmVydGljYWwtYW jnG296DLAtvDfnOr9QCxo 4S2GiItx6ZKFa xLlvNU8pvUZjBIysGc9nb ZztiEvwKM9fVXItnhkcj1 44IaQjl8rbEKQtbLXmXEj uKDK3Z36fd5A0 OKZyAZLfVDZ2tEN3fD3jf GlnbjogbGVmdDsgdmVydG wfAXiqWAteG587HVSndNe nPlBheWVyOjwv dGQ+EK51hh58W5CxPickP py3WJMzWFV3eMA8nB0oQY XcPZglj4Y7gSK3P5NbtxY pvk0om8yaDWUr ZTog (more content not included)... Normal [facility] Consent for Procedure/Surger yon 04-24-2021 Consent for Procedure/Surgery [id number] .00CD:127 Normal [facility] IntraOperative Documentson 0 04-24-2021 IntraOperative Documents [id number]#1 .00CD:127 Normal [facility] Consent for Treatmenton 04-09 Consent for Treatment [id number]#1 .00CD:127 Normal [facility] Inpatient Patient Summaryon 04-22-2021 Inpatient Patient Summary [address] [address] Clinical Summary Person Information Name: JES GARRETT Age: 30 Years : 1990 Sex: Female PCP: Cirilo Flores MD Marital Status: Single Race: White Ethnicity: Non- or Language: Faroese Visit Id: Visit Reason: KIDNEY STONES Speciality: Acuity: Enc Type: Outpatient Med Service: Surgery Arrival: 04/22/2021 10:22:17 Discharge: Dispo Type: Address: [facility] [id number] Provider Notes: Diagnosis: Kidney stone Problems Active Smoker Kidney stone Smoking Status: Functional Status: Sensory Deficits: History of Falls: Mobility Assistance Prior to Admission: ADLs: Current Level of Assistance for Self-Care/Mobility: Cognitive Status: Allergies No Known Allergies Laboratory or Other Results This Visit (last charted value for your 04/22/2021 visit) No Laboratory or Other Results This Visit Measurements: Height: Weight: Blood Pressure: Not Valued / Not Valued BMI: Procedures No Procedures Documented Immunizations No Immunizations Documented This Visit Final Med List: buPROPion (Wellbutrin XL 300 mg/24 hours Tab-ER) 1 Tablets By Mouth every day. cephalexin (Keflex 500 mg Cap) 1 Capsules By Mouth every 12 hours. take 1 cap the evening prior to scheduled procedure, take 2nd capsule the day of scheduled procedure. Refills: 0. hydrOXYzine (hydrOXYzine hydrochloride 10 mg Tab) 1 Tablets By Mouth every day. Care Team Members: Attending Physician: Doreen Echeverria MD Consulting Physician: Referring Physician: Doreen Echeverria MD Follow up: Patient Education Information: EU - Cystoscopy with Stent Removal Discharge Instructions (CUSTOM) [facility] Main OR Intraoperative Recor don 04-22-2021 Main OR Intraoperative Record IntraOp Document Type FTURO Summary Primary Physician: Doreen Echeverria MD Finalized Date/Time: 04/22/21 11:07:13 Pt. Name: JES GARRETT/Sex: 1990 Female Med Rec #: [id number] Physician: Doreen Echeverria MD Financial #: [id number] Pt. Type: O Room/Bed: / Admit/Disch: 04/22/21 10:22:17 - Institution: Case Times FTURO Entry 1 Patient Times In Room 04/22/21 10:55:00 Out Room 04/22/21 11:13:00 Procedure Times Start 04/22/21 11:04:00 Stop 04/22/21 11:08:00 Anesthesia Times Last Modified By: LUIS EDUARDO Kaba RN, Giana 04/22/21 11:06:58 Case Attendance FTURO Entry 1 Entry 2 Entry 3 Case Attendee Juwan AGUIAR, Doreen Kaba RN, VARSHAOR, [place] CST, Shavon Faria Role Performed Surgeon - Primary Industrial Relations Commissioner - Primary Scrub - Primary Time In 04/22/21 10:55:00 04/22/21 10:55:00 04/22/21 10:55:00 Time Out 04/22/21 11:13:00 04/22/21 11:13:00 04/22/21 11:13:00 Procedure CYSTOSCOPY LOCAL WITH CYSTOSCOPY LOCAL WITH CYSTOSCOPY LOCAL WITH STENT REMOVAL(Left) STENT REMOVAL(Left) STENT REMOVAL(Left) Comments Last Modified By: VARSHA Kaba RNOR, Sesar PICKERING, LUIS EDUARDO, LUIS EDUARDO Kaba RN, Ruthann 04/22/21 Giana 04/22/21 Giana 04/22/21 11:07:06 11:07:06 11:07:06 Surgical Procedures FTURO Entry 1 Procedure Description Procedure CYSTOSCOPY LOCAL WITH Modifiers Left STENT REMOVAL Surgeon Description cysto with stent removal Primary Procedure Yes Primary Surgeon Juwan AGUIAR, Doreen Wilkins 04/22/21 11:04:00 Stop 04/22/21 11:08:00 Anesthesia Type Local Surgical Service Urology Wound Class 2 - Clean-Contaminated Last Modified By: LUIS EDUARDO Kaba RN, Ruthann 04/22/21 11:07:08 General Case Data FTURO Pre-Care Text: Classifies surgical wound, implements aseptic technique, initiates traffic control Entry 1 Case Information OR URO 1 FT Case Level None Wound Class 2 - Clean-Contaminated Specialty Transplant Preop Diagnosis KIDNEY STONES Postop Same As Preop Yes Postop Diagnosis KIDNEY STONES Outcomes Met? Yes Last Modified By: LUIS EDUARDO Kaba RN, Ruthann 04/22/21 11:01:44 Post-Care Text: The patient is free from signs and symptoms of infection EU IntraOp - FTURO Pre-Care Text: Implements protective measures prior to operative or invasive procedure, confirms identity before the operative or invasive procedure, verifies operative procedure, surgical site, and laterality Entry 1 EU Perioperative Protocols Procedure(s) CYSTOSCOPY LOCAL WITH Patient Identity Birthday, ID Band STENT REMOVAL(Left) Verified (select at Check, Patient least 2): Participation Consents / H and P HandP, Surgery/Procedure Operative Site Present Verified Consent Marking Verified Surgical Site Yes Laterality Verified Yes Verified Procedure Verified Yes Correct Patient Yes Position Verified Availability Equipment, Medication Time Out Doreen Echeverria MD, Verified (If Participants LUIS EDUARDO Kaba RN, Applicable) Danica Faria CST, Gwen E Time Out Complete 04/22/21 11:03:00 Allergies Reviewed? Yes Allergies Reviewed Self/Patient With Body Position Frog Legged Prep Area perineal area Prep Agents Betadine Solution Skin. Condition Unable to Visualize Additional None Specimens Collected Vitals - EU Blood Pressure 125/84 Pulse 75 bpm Respirations 16 br/min SPO2 EBL 0 IandO - EU Total Intake 0 mL Total Output 0 mL Outcomes Met? Yes Last Modified By: LUIS EDUARDO Kaba RN, Ruthann 04/22/21 11:05:20 Post-Care Text: The patient is free from signs and symptoms of injury caused by extraneous objects Sign Out FTURO Entry 1 Before Patient Leaves OR Nurse verbally Yes Nurse verbally n/a confirms with the confirms with the team the name of team that the procedure(s) instrument, sponge, recorded and needle counts are correct (or N/A) Nurse verbally n/a Nurse verbally n/a confirms with the confirms with the team how the team whether there specimen is labeled are any equipment (including patient problems to be name), if applicable addressed Sign Out Complete 04/22/21 11:09:00 Last Modified By: LUIS EDUARDO Kaba RN, Ruthann 04/22/21 11:07:04 Case Comments Finalized By: LUIS EDUARDO Kaba RN, Ruthann Document Signatures Signed By: LUIS EDUARDO Kaba RN, Ruthann 04/22/21 11:07 Normal [facility] Main OR Preoperative Recordo n 04-22-2021 Main OR Preoperative Record Holding Area Document Type FTURO Summary Primary Physician: Doreen Echeverria MD Finalized Date/Time: 04/22/21 11:00:23 Pt. Name: JES GARRETT./Sex: 1990 Female Med Rec #: [id number] Physician: Doreen Echeverria MD Financial #: [id number] Pt. Type: O Room/Bed: / Admit/Disch: 04/22/21 10:22:17 - Institution: Case Times Holding FTURO Pre-Care Text: Verifies consent for planned procedure, identifies individual values and wishes concerning care, includes family members in perioperative teaching Secures patient's records' belongings, and valuables, maintains patient's dignity and privacy, and maintains patient confidentiality Entry 1 In Holding 04/22/21 10:28:00 Outcomes Met? Yes Last Modified By: Richard Weller LPN 04/22/21 10:28:06 Post-Care Text: The patient participates in decisions affecting his or her perioperative plan of care The patient's right to privacy is maintained Surgery Checklist FTURO Entry 1 Patient Birthday, ID Band Procedure History and Physical, Identification: Check, Patient Verification: Surgical Consent, With Participation Patient NPO after Midnight: n/a Personal Items: Jewelry Personal Items necklace, ring Complaints of Pain: Yes Comment: Pain Comment: discomfort from stent Skin Integrity Unable to Visualize Vitals - EU Blood Pressure 125/84 Pulse 75 bpm Respirations 16 br/min SPO2 RN Reviewed Yes Last Modified By: LUIS EDUARDO Kaba RN, Ruthann 04/22/21 10:59:18 General Comments: Temp 36.0 Finalized By: LUIS EDUARDO Kaba RN, Ruthann Document Signatures Signed By: LUIS EDUARDO Kaba RN, Ruthann 04/22/21 10:59 Richard Weller LPN 04/22/21 10:30 LUIS EDUARDO Kaba RN, Ruthann 04/22/21 11:00 Normal [facility] Operative Reporton Operative Report Patient: JES GARRETT Age: 30 years Sex: Female : 1990 Associated Diagnoses: None Author: Doreen Echeverria MD Procedure Operative Information Details: Date/ Time: 04/22/2021 11:09:00. Pre-Op Dx: Kidney stone (RAL25-ZB N20.0, Discharge, Medical), Foreign Body in Bladder - T19.1XXA. Post-Op Dx: Same. Anesthesia Type: Local. Procedure: Local Cystoscopy with Stent Removal. Complications: None. Risks/Benefits/Inform ed Consent: Surgical risks, benefits, details of the procedure have been explained to the patient, Full informed consent has been obtained. Intraoperative Information Prepped: The patient was placed in supine position, The patient was prepped with the Betadine solution. Anesthesia: 2% Xylocaine Jelly per urethra. Procedure: Cystoscopy and Left Stent Removal, The flexible Cystoscope was passed in retrograde fashion into the bladder without difficulty, The bladder was viewed in entirety and found to be without tumors or stones, Mild inflammation was seen surrounding the orifice with the stent seen protruding from it, The stent was then grasped and removed in its entirety, Mildly encrusted stent. Devices Implanted: None. Postoperative Information Discharge: The patient tolerated the procedure well and was subsequently discharged home. KUB 04/18/21 at [facility] without stones. Left stent removed today without difficulty. Pt did not note passage of stones, no stone pathology to review. Educated on general stone prevention, post op care. Pt has a history of non-compliance with both clinic and OR, as well as failure to follow up despite being told retaining a stent could lead to permanent renal damage and need for invasive procedures including kidney removal. After many attempts of contacting the patient for her no-shows and certified letters being sent, she finally presented for stent removal today. As previously discussed with pt due to her non-compliance, I can longer treat her in my practice. She was advised to establish care with another urologist. She states her understanding. . [facility] Comment on above: Result Comment: Elec tronically Signed By: Doreen Echeverria MD\.br\Date and Time Signed: 04/22/21 11:16 EDT Outpatient Surgery Discharge Instructionon 04-22-2021 Outpatient Surgery Discharge Instruction [place] [id number] Patient Discharge Instructions PERSON INFORMATION Name: JES GARRETT Date of : 1990 Current Date: 04/22/2021 11:08:32 PHYSICIANS Admitting Physician: Doreen Echeverria MD Comment: Discharge Diagnosis: Kidney stone JES GARRETT has been given the following list of follow-up instructions, prescriptions, and patient education materials: IF UNABLE TO CONTACT YOUR PHYSICIAN AND YOU FEEL IT IS AN EMERGENCY, GO TO THE NEAREST EMERGENCY ROOM OR CALL 911 Follow up: Comment: PATIENT EDUCATION INFORMATION Instructions: Cystoscopy with Stent Removal ? Voiding after the procedure: there may be some pain, burning, urgency, frequency and blood tinged urine following the procedure. These symptoms usually resolve within 2-5 days. Drink the amount of fluid it takes to keep the urine pink to yellow or clear in color. Drinking enough water and fluids will help to ease any discomfort after your procedure. ? If you are having problems that seem out of the ordinary, please call. ? If unable to contact your physician and you feel it is an emergency, go to the nearest emergency room or call 911 ? Diet ? you may resume your normal diet. ? Activity ? you may resume your normal activities ? Call if you have a fever over 100 degrees. ITAMI KRISTEN, have received the attached patient education materials/instruction s and have verbalized understanding: May we do a follow up call? Yes No I was present when discharge instructions were given Patient Signature Date Clinican/Nurse Signature Date You may receive a survey from [employer] asking you to rate your care experience. Your feedback is important and will help us understand what we do well and how we can improve the quality of care we provide to you, your loved ones and our community. It?s an honor to serve you. Thank you for choosing [facility] XR KUB 1 VIEWon 04-18-2021 XR KUB 1 VIEW EXAMINATION: XR KUB 1 VIEW HISTORY: Kidney stone COMPARISON: XR KUB 03/06/2021 FINDINGS: KIDNEY/URETER - RIGHT: No visible renal or ureteral calcifications. KIDNEY/URETER - LEFT: Left ureteral stent appearing in good position. Previously seen proximal left ureterolithiasis no longer present. PELVIS: Stable right pelvic calcification favoring a phlebolith. IUD within midline pelvis. BOWEL: No abnormal dilation or deviation. BONES: No acute abnormality. OTHER: Negative. No abnormal gaseous collections. IMPRESSION: 1. Left ureteral stent. 2. No appreciable urinary tract calculi. Electronically authenticated by: BAM PRECIADO Date: 2021-04-18 14:35 Normal [facility] Reminderson 04-03-2021 Reminders - From: Brenna Barker To: EU - Clinical; Brenna Barker; Sent: 03/11/2021 15:28:27 EST Show up: 03/21/2021 15:28:00 EST Subject: KuB At [facility] 03/20/21, show Dr Echeverria results, Stent removal spot held for 03-25-21 still not done, left msg on pt's voicemail to remind her to have done. order faxed to [facility] again. spoke with patient on sunday 03/26. her stent removal was rescheduled to 04/01/21 and she would have her kub done prior, checked for results, still not done Pt. VM can not take any messages Pt got a certified letter per [employer] sent for non compliance, pt no showed stent removal for 2nd time on 04/01/21. [facility] Patient Letter FTMCon 2021 Patient Letter FT April 02, 2021 JES GARRETT [address] [place] [address] JES GARRETT 1990 Dear Jes, I am reaching you by certified mail due to your non compliance. You missed your cysto/ Stent removal appointment on 03/25/21 and on 04/01/21. Its very urgent that you contact my office as soon as possible so we can get you rescheduled to have your stent removed. Risk's of having the ureteral stent in place longer than recommended can result in infection, surgical removal of the stent, encrustation, loss of kidney function and possible need for removal of the kidney. Thank you for your prompt attention to this matter. Sincerely, Dr Doreen Echeverria MD [facility] [address] [place] [address] [facility] Operative Reporton Operative Report [id number] .00CD:127 [facility] PREG HCG QUALon 03-06-2021 , QUAL Negative Normal NEGATIVE [facility] Comment on above: Performed By: #### P REG #### [facility] [address] [place] [address] Dr. Bryson Spangler XR KUB 1 VIEWon 03-06-2021 XR KUB 1 VIEW EXAMINATION: XR KUB 1 VIEW HISTORY: Urolithiasis COMPARISON: 02/11/2021 FINDINGS: KIDNEY/URETER - RIGHT: No visible renal or ureteral calcifications. KIDNEY/URETER - LEFT: Left double-J ureteral stent in normal position. Interval change in position of a previously noted left nephrolith now projected over the proximal left ureteral stent likely in the proximal ureter PELVIS: No visible ureteral calcifications. Any visible calcifications favor phleboliths. BOWEL: No abnormal dilation or deviation. BONES: No acute abnormality. OTHER: IUD mid pelvis. No abnormal gaseous collections. IMPRESSION: Stable left ureteral stent Change in position of left nephrolith now likely in the proximal left ureter Electronically authenticated by: CRISTÓBAL WATSON Date: 2021-03-06 12:55 Normal [facility] Reportson 03-05-2021 Lab Reports [id number]. 00CD:127 [facility] Covid-19 PCR (CVDTB)on 02-10 SARS-CoV-2 (COVID-19) RNA PAULO+probe Ql (Unsp spec) Not detected Normal NOT DETECTED [facility] Comment on above: Result Comment: This test is not yet approved or cleared by the [place] FDA. When there are no FDA-approved or cleared tests available, and other criteria are met, FDA can make tests available under an emergency access mechanism called an Emergency Use Authorization (EUA). The EUA for this test is supported by the [place] of Health and Human Service's (HHS's) declaration that circumstances exist to justify the emergency use of in vitro diagnostics for the detection and/or diagnosis of the virus that causes COVID-19. This EUA will remain in effect (meaning this test can be used) for the duration of the COVID-19 declaration justifying emergency of IVDs, unless it is terminated or revoked by FDA (after which the test may no longer be used). When diagnostic testing is negative, the possibility of a false negative should be considered in the context of a patient's recent exposures and the presence of clinical signs and symptoms consistent with SARS-CoV-2. Performed By: #### C [facility] #### [facility] [address] [place] [address] Dr. Bryson Spangler Physician Orderon 03-01-2021 Physician Order [id number] .00CD:127 [facility] Patient Educationon 02-27-19 Patient Education Urology Kidney Stones Kidney stones are rock-like masses that form inside of the kidneys. Kidneys are organs that make pee (urine). A kidney stone may move into other parts of the urinary tract, including: ? The tubes that connect the kidneys to the bladder (ureters). ? The bladder. ? The tube that carries urine out of the body (urethra). Kidney stones can cause very bad pain and can block the flow of pee. The stone usually leaves your body (passes) through your pee. You may need to have a doctor take out the stone. What are the causes? Kidney stones may be caused by: ? A condition in which certain glands make too much parathyroid hormone (primary hyperparathyroidism). ? A buildup of a type of crystals in the bladder made of a chemical called uric acid. The body makes uric acid when you eat certain foods. ? Narrowing (stricture) of one or both of the ureters. ? A kidney blockage that you were born with. ? Past surgery on the kidney or the ureters, such as gastric bypass surgery. What increases the risk? You are more likely to develop this condition if: ? You have had a kidney stone in the past. ? You have a family history of kidney stones. ? You do not drink enough water. ? You eat a diet that is high in protein, salt (sodium), or sugar. ? You are overweight or very overweight (obese). What are the signs or symptoms? Symptoms of a kidney stone may include: ? Pain in the side of the belly, right below the ribs (flank pain). Pain usually spreads (radiates) to the groin. ? Needing to pee often or right away (urgently). ? Pain when going pee (urinating). ? Blood in your pee (hematuria). ? Feeling like you may vomit (nauseous). ? Vomiting. ? Fever and chills. How is this treated? Treatment depends on the size, location, and makeup of the kidney stones. The stones will often pass out of the body through peeing. You may need to: ? Drink more fluid to help pass the stone. In some cases, you may be given fluids through an IV tube put into one of your veins at the hospital. ? Take medicine for pain. ? Make changes in your diet to help keep kidney stones from coming back. Sometimes, medical procedures are needed to remove a kidney stone. This may involve: ? A procedure to break up kidney stones using a beam of light (laser) or shock waves. ? Surgery to remove the kidney stones. Follow these instructions at home: Medicines ? Take djue-jdu-ulufxdj and prescription medicines only as told by your doctor. ? Ask your doctor if the medicine prescribed to you requires you to avoid driving or using heavy machinery. Eating and drinking ? Drink enough fluid to keep your pee pale yellow. You may be told to drink at least 8?10 glasses of water each day. This will help you pass the stone. ? If told by your doctor, change your diet. This may include: ? Limiting how much salt you eat. ? Eating more fruits and vegetables. ? Limiting how much meat, poultry, fish, and eggs you eat. ? Follow instructions from your doctor about eating or drinking restrictions. General instructions ? Collect pee samples as told by your doctor. You may need to collect a pee sample: ? 24 hours after a stone comes out. ? 8?12 weeks after a stone comes out, and every 6?12 months after that. ? Strain your pee every time you pee (urinate), for as long as told. Use the strainer that your doctor recommends. ? Do not throw out the stone. Keep it so that it can be tested by your doctor. ? Keep all follow-up visits as told by your doctor. This is important. You may need follow-up tests. How is this prevented? To prevent another kidney stone: ? Drink enough fluid to keep your pee pale yellow. This is the best way to prevent kidney stones. ? Eat healthy foods. ? Avoid certain foods as told by your doctor. You may be told to eat less protein. ? Stay at a healthy weight. Where to find more information ? National Kidney Foundation (NKF): www.kidney.org ? Urology Care Foundation (UCF): www.urologyhealth.org Contact a doctor if: ? You have pain that gets worse or does not get better with medicine. Get help right away if: ? You have a fever or chills. ? You get very bad pain. ? You get new pain in your belly (abdomen). ? You pass out (faint). ? You cannot pee. Summary ? Kidney stones are rock-like masses that form inside of the kidneys. ? Kidney stones can cause very bad pain and can block the flow of pee. ? The stones will often pass out of the body through peeing. ? Drink enough fluid to keep your pee pale yellow. This information is not intended to replace advice given to you by your health care provider. Make sure you discuss any questions you have with your health care provider. Document Released: 07/14/2008 Document Revised: 06/14/2019 Document Reviewed: 06/14/2019 Elsevier Patient Education ? 2019 [employer] Ashlie More [facility] Urology Office/Clinic Noteon 02-27-2021 Urology Office/Clinic Note Chief Complaint Pt is here for follow up to Cysto/retrograde HPI Staff Jes is a 30 y.o. female new patient here for follow up to [facility] cysto/LT retrograde/ureteral stent placement. Previous Dx: kidney stone. S/P cysto/LT retrograde/ureteral stent placement done on 02/04/21. Urology consult on 02/04/21 @ [facility]. CT done on 02/04/21 showed moderate hydronephrosis on the left due to 5mm stone at the UPJ. Dysuria: yes Incomplete bladder emptying: denies Hematuria: yes seen yesterday Frequency: denies Urgency: yes Nocturia: denies Stream: steady stream Leaking: denies Post void dripping: denies Wearing pads/ Depends: denies Urge incontinence: denies Stress incontinence: denies Incontinence without Sensory Awareness: denies Abdominal pain: denies Flank pain: yes feels stabbing in her side Sexual complaints: History of Present Illness reviewed medical history, op report no fever, chills, dysuria. Intermittent hematuria Review of Systems PHQ Score Initial Depression Screen Score: 0 ROS - Provider Constitutional: denies weight loss, denies hot flashes. Eyes: denies eye problems. Gastrointestinal: denies nausea, denies vomiting. Cardiovascular: denies chest pain or angina. Integumentary: no dryness Musculoskeletal: denies musculoskeletal symptoms. ENMT: denies otolaryngeal symptoms. Respiratory: no shortness of breath. Heme/Lymph: denies easy bleeding tendency, denies easy bruising tendency. Psychiatric: no confusion, no anxiety. Genitourinary: see [facility] Physical Exam Vitals & Measurements HR: 72(Peripheral) RR: 16 BP: 132/87 HT: 158 cm WT: 91 kg BMI: 36.45 General Appearance: alert , no acute distress, well nourished, well developed female. Genitourinary: bladder nonpalpable, no flank pain. Assessment/Plan 1. Kidney stone (N20.0: Calculus of kidney) s/p cysto/ LRG/ L ureteral stent placement done 02/04/21. patient c/o discomfort from ureteral stent and is seeing mild intermittent hematuria. -Can see 5 mm stone in left kidney (no longer in ureter) Discussed different treatment options including ureteroscopy/laser/ba sket or L ESWL. Risk's of procedure discussed with patient including bleeding, infection, anesthesia, kidney bruising, hematoma. Discussed with patient importance of drinking plenty of water, including lemon water, pink lemonade crystal light. patient states she drinks a lot of redbull, recommend patient to drink water in between drinking the red bull. Patient would like to proceed with L ESWL. Follow-up No qualifying data available Patient Education Kidney Stones, Dqul-if-Trsq IBrenna, personally scribed for Dr. Echeverria on 02/27/2021 09:03:33. . Documentation recorded by the scribe, Brenna Barker, accurately reflects the services(s) I performed and decisions made by me. Authenticated by Dr. Echeverria on 02/27/2021 09:14:12. Problem List/Past Medical History Ongoing Kidney stone Smoker Historical No qualifying data Procedure/Surgical History Cystoscopy and retrograde pyelography (02/04/2021). Medications hydrOXYzine hydrochloride 10 mg Tab, 10 mg= 1 tab(s), Oral, Daily Wellbutrin XL 300 mg/24 hours Tab-ER, 300 mg= 1 tab(s), Oral, Daily Allergies No Known Allergies Social History Tobacco 10 or more cigarettes (1/2 pack or more)/day in last 30 days Tobacco Use:. Cigarettes, 02/07/2021 Tamsulosin sent to assist with stone passage s/p ESWL. Declined metabolic workup at this time given only 1 stone, last was a few yrs ago and she understands behavioral modification as above. [facility] Comment on above: Result Comment: Elec tronically Signed By: Juwan AGUIAR, Doreen Dill\.br\Date and Time Signed: 02/27/21 09:15 EST Lab Reportson 02-11-2021 Lab Reports [id number] .00CD:127 [facility] ED Note-Physicianon 02-08-20 ED Note-Physician [id number] .00CD:127 [facility] Insurance Correspondence Off iceon 02-07-2021 Insurance Correspondence Office [id number] .00CD:127 [facility] Operative Reporton 1 Operative Report [id number] .00CD:127 [facility] Comment on above: Other Comment: LILO JIN RAD - CT Reporton 02-07-2021 RAD - CT Report [id number] .00CD:127 [facility] Consultation Noteon 02-06-20 21 Consultation Note [id number] .00CD:127 [facility] Insurance Correspondence Off iceon 02-05-2021 Insurance Correspondence Office [id number] .00CD:127 [facility] Operative Reporton 1 Operative Report [id number] .00CD:127 [facility] Vital Signs Date Time Vital Sign Value Performing Clinician Juan Diego nguyen 01-04-2024 14:38-0500 Body height 160 cm Avnera Work Phone: [facility] 01-04-2024 14:38-0500 Body mass index (BMI) [Ratio] 36.81 kg/m2 Sanguine DO Work Phone: [facility] 01-04-2024 14:38-0500 Body weight 94.26 kg John Feroz DO Work Phone: [facility] 01-04-2024 14:38-0500 Diastolic blood pressure 60 mm[Hg] I and love and youo DO Work Phone: [facility] 01-04-2024 14:38-0500 Systolic blood pressure 108 mm[Hg] [id number] DO Work Phone: [facility] Healthcare Encounters Encounter Date Encounter Type Care Provider Facility Start: 01-27-2024 End: 01-27-2024 Clinisync Result Encounter John Feroz DO Work Phone: [facility] Unsolicited Start: 01-27-2024 End: 01-27-2024 Clinisync Result Encounter John Feroz DO Work Phone: [facility] Unsolicited Start: 01-27-2024 End: 01-27-2024 ambulatory John Feroz Facility:[facility] Start: 01-21-2024 End: 01-21-2024 Bamboo flowsheet Terri HERNANDEZ Work Phone: [facility] Start: 01-21-2024 End: 02-01-2024 Bamboo flowsheet Terri HERNANDEZ Work Phone: [facility] Start: 01-21-2024 End: 02-01-2024 Clinisync Result Encounter Terri HERNANDEZ Work Phone: [facility] Unsolicited Start: 01-21-2024 End: 01-21-2024 ambulatory TERRI MONTIEL Not Available Start: 01-21-2024 End: 01-21-2024 Patient encounter procedure Terir HERNANDEZ Work Phone: [facility] Start: 01-21-2024 End: 01-21-2024 Periodic preventive med est patient 18-39 yrs Terri HERNANDEZ Work Phone: [facility] Comment on above: Well woman exam with routine gynecological exam Start: 01-04-2024 End: 01-04-2024 Office outpatient visit 15 minutes John Feroz DO Work Phone: [facility] Comment on above: Pre-op examination; Request for sterilization Start: 01-04-2024 End: 01-04-2024 Preprocedural examination done John Feroz DO Work Phone: [facility] Start: 01-04-2024 End: 01-04-2024 ambulatory JOHN FEROZ Not Available Start: 11-30-2023 End: 11-30-2023 ambulatory JOHN FEROZ Not Available Start: 02-17-2022 End: 02-17-[address] LINA OLIVEIRA Facility:[facility] Start: 04-18-2021 End: 04-19-2021 ambulatory DOREEN ECHEVERRIA . Facility:[facility] Start: 03-06-2021 End: 03-06-2021 ambulatory DOREEN ECHEVERRIA . Facility:[facility] Start: 03-06-2021 Encounter for preprocedural laboratory examination DOREEN ECHEVERRIA . [facility] Start: 03-02-2021 End: 03-03-2021 ambulatory DOREEN ECHEVERRIA . Facility:[facility] Start: 03-02-2021 End: 03-03-2021 Encounter for preprocedural laboratory examination DOREEN ECHEVERRIA . Facility: Start: 07-23-2016 End: 07-25-2016 Evaluation and management of inpatient CRISTÓBAL [facility] Procedures Date Procedure Procedure Detail Performing Clinician Start: 01-27-2024 ALL CBC WITH AUTO DIFF John Feroz DO Work Phone: Start: 01-21-2024 IGP,APTIMA HPV,AGE GDLN Terri HERNANDEZ Work Phone: Plan of Treatment Date Care Activity Detail Author Start: 01-23-2025 End: 01-23-2025 Patient encounter procedure 01/23/2025 2:00 PM EST Office Visit [facility] [address] [facility] [place] [id number] Terri Montiel PA [address] [place], [place] [address] [address] [facility] Start: 02-17-2024 End: 02-17-2024 Patient encounter procedure 02/17/2024 9:30 AM EST Office Visit [facility] [address] [place] [address] Terri Montiel PA [facility] [place] [address] [facility] Start: 01-27-2024 Chart abstracting 01/27/2024 A bstract [facility] [address] [place] [address] John Redman DO [address] [facility] [address] [place], [place] [id number] [facility] Start: 01-21-2024 End: 01-21-2024 Patient encounter procedure 01/21/2024 1:30 PM EST Office Visit [facility] [address] [address] Terri Montiel PA [address] [place], [place] [id number] [facility] Cytology Cervical or vaginal smear or scraping study Pap Smear Pathology and Cytology Routine Well woman exam with routine gynecological exam Ordered: 01/21/2024 [facility] Work Phone: Comment on above: Ordered: 01/21/2024 Human papilloma viru s DNA [Presence] in Unspecified specimen by Probe with amplification HPV DNA probe, amplified Microbiology Routine Well woman exam with routine gynecological exam Ordered: 01/21/2024 [facility] Comment on above: Ordered: 01/21/2024 Payers Date Payer Category Payer Self-pay 2023 Private Health Insurance [facility] MEDICAID [id number] 2023 Medicaid [id number] 2015 Private Health Insurance [id number] 1990 Unknown [id number]. 903 1990 Unknown [id number] [id number]. 593 1990 Unknown [id number] [id number]. 593 1990 Unknown [id number] 2.16.840.1.461738.3.579.2. 593 1990 Unknown [id number] 2.16.840.1.126408.3.579.2. 593 1988 Unknown [id number] 2.16.840.1.103344.3.579.2. 1259 1988 Unknown [id number] 2.16.840.1.820320.3.579.2. 1259 1988 Unknown [id number] 2.16.840.1.388000.3.579.2. 1259 1961 Medicaid [id number] Social History Date Type Detail Facility Tobacco smoking stat [facility] Tobacco smoking consumption unknown [facility] Healthcare Start: 1990 Sex assigned at [facility] Start: 11-10-2023 Gender identity Identifies as female gender (finding) [facility] Start: 11-10-2023 Sexual orientation Heterosexual (fin ding) [facility] History of Present illness Narrative 01-21-2024 DAVID Lozano - 01/21/2024 1:30 PM EST Note Date & Type Note Facility 01-21-2024 History of Presen t illness Narrative Reason for Appointment: Patient ID: Jes Garrett is a 33 y.o. female who presents for Gynecologic Exam Patient presents today for Annual Exam. MEDICATIONS Current Outpatient Medications Medication Instructions desogestrel-ethinyl estradiol (Apri) 0.15-30 MG-MCG tablet 1 tablet, Oral, Daily, Take 1 tablet by mouth daily hydrOXYzine HCl (Atarax) 10 MG tablet TAKE 1 TABLET BY MOUTH EVERY DAY NEEDED for 30 Lexapro 20 MG tablet Every 24 hours phentermine (ADIPEX-P) 37.5 mg, Daily before breakfast ALLERGIES No Known Allergies PROBLEMS Active Ambulatory Problems Diagnosis Date Noted No Active Ambulatory Problems Resolved Ambulatory Problems Diagnosis Date Noted No Resolved Ambulatory Problems No Additional Past Medical History HISTORY PAST MEDICAL HISTORY SOCIAL HISTORY No past medical history on file. Social History Tobacco Use Smoking status: Not on file Smokeless tobacco: Not on file Substance Use Topics Alcohol use: Not on file Drug use: Not on file FAMILY HISTORY No family history on file. SURGICAL HISTORY No past surgical history on file. REVIEW OF SYSTEMS Review of Systems: Review of Systems Constitutional: Negative. HENT: Negative. Eyes: Negative. Respiratory: Negative. Cardiovascular: Negative. Gastrointestinal: Negative. Genitourinary: Negative. Musculoskeletal: Negative. Skin: Negative. Neurological: Negative. All other systems reviewed and are negative. Hematological: Negative. Endocrine: Negative. Allergic/Immunologic: Negative. OBJECTIVE Objective: Physical Exam Constitutional: Appearance: Normal appearance. She is well-developed. Genitourinary: Vulva normal. Right Adnexa: not tender and no mass present. Left Adnexa: not tender and no mass present. No cervical discharge. Breasts: Breasts are soft. Right: Normal. Left: Normal. HENT: Head: Normocephalic. Nose: Nose normal. Mouth/Throat: Mouth: Mucous membranes are moist. Cardiovascular: Rate and Rhythm: Normal rate and regular rhythm. Pulmonary: Effort: Pulmonary effort is normal. Breath sounds: Normal breath sounds. Abdominal: General: Bowel sounds are normal. There is no distension. Palpations: Abdomen is soft. Tenderness: There is no abdominal tenderness. There is no guarding or rebound. Musculoskeletal: General: No swelling. Normal range of motion. Cervical back: Normal range of motion. Right lower leg: No edema. Left lower leg: No edema. Neurological: General: No focal deficit present. Mental Status: She is alert and oriented to person, place, and time. Skin: General: Skin is warm and dry. Psychiatric: Mood and Affect: Mood normal. Behavior: Behavior normal. Vitals and nursing note reviewed. Exam conducted with a weekend anchor present. Vitals: Estimated body mass index is 36.81 kg/m as calculated from the following: Height as of 01/04/24: 5' 3 . Weight as of 01/04/24: 207 lb 12.8 oz. BP: Patient's last menstrual period was 01/02/2024. ASSESSMENT & PLAN ICD-10-CM 1. Well woman exam with routine gynecological exam Z01.419 Annual Exam: Patient presents today for an annual exam. Patient states she is doing well and has no complaints. Pap was obtained without difficulty. Orders Placed This Encounter Procedures HPV DNA probe, amplified Follow Up: Patient is to return in one year for annual unless needed otherwise. Documented by Camila Villagomez LPN on behalf of: DAVID Lozano documented in this encounter [facility] History of Present illness Narrative 01-04-2024 Merline Porter - 01/04/2024 2:20 PM EST Note Date & Type Note Facility 01-04-2024 History of Presen t illness Narrative Reason for Appointment: Patient ID: Jes Garrett is a 33 y.o. female who presents for Pre-op Visit Patient presents today for Pre Op appointment. Patient is scheduled to undergo Da Zuleika assisted Bilateral Laparoscopic Salpingectomy on 01/27/[address] Redman at [facility]. MEDICATIONS Current Outpatient Medications Medication Instructions desogestrel-ethinyl estradiol (Apri) 0.15-30 MG-MCG tablet 1 tablet, Oral, Daily, Take 1 tablet by mouth daily hydrOXYzine HCl (Atarax) 10 MG tablet TAKE 1 TABLET BY MOUTH EVERY DAY NEEDED for 30 Lexapro 20 MG tablet Every 24 hours ALLERGIES No Known Allergies PROBLEMS Active Ambulatory Problems Diagnosis Date Noted No Active Ambulatory Problems Resolved Ambulatory Problems Diagnosis Date Noted No Resolved Ambulatory Problems No Additional Past Medical History HISTORY PAST MEDICAL HISTORY SOCIAL HISTORY No past medical history on file. Social History Tobacco Use Smoking status: Not on file Smokeless tobacco: Not on file Substance Use Topics Alcohol use: Not on file Drug use: Not on file FAMILY HISTORY No family history on file. SURGICAL HISTORY No past surgical history on file. REVIEW OF SYSTEMS Review of Systems: Review of Systems Constitutional: Negative. HENT: Negative. Eyes: Negative. Respiratory: Negative. Cardiovascular: Negative. Gastrointestinal: Negative. Genitourinary: Negative. Musculoskeletal: Negative. Skin: Negative. Neurological: Negative. All other systems reviewed and are negative. Hematological: Negative. Endocrine: Negative. Allergic/Immunologic: Negative. OBJECTIVE Objective: Physical Exam Constitutional: Appearance: Normal appearance. She is well-developed. Cardiovascular: Rate and Rhythm: Normal rate and regular rhythm. Pulmonary: Effort: Pulmonary effort is normal. Breath sounds: Normal breath sounds. Abdominal: General: Bowel sounds are normal. There is no distension. Palpations: Abdomen is soft. Tenderness: There is no abdominal tenderness. There is no guarding or rebound. Musculoskeletal: General: No swelling. Normal range of motion. Right lower leg: No edema. Left lower leg: No edema. Neurological: Mental Status: She is alert and oriented to person, place, and time. Skin: General: Skin is warm and dry. Psychiatric: Mood and Affect: Mood normal. Behavior: Behavior normal. Vitals and nursing note reviewed. Exam conducted with a weekend anchor present. Vitals: There is no height or weight on file to calculate BMI. BP: No LMP recorded. ASSESSMENT & PLAN ICD-10-CM 1. Pre-op examination Z01.818 2. Request for sterilization Z30.2 Pre Op: Patient is doing well but has desire for sterilization. I have discussed conservative management vs. surgical management with the patient in detail and patient desires surgical management at this time. Patient has voiced understanding that a Bilateral Salpingectomy is considered to be permanent and patient will undergo Da Zuleika assisted Bilateral Laparoscopic Salpingectomy on 01/27/2024. Surgical consents were signed, mmc was reviewed, and patient is to proceed to [facility] OR. Follow Up: Patient is to follow up between 1-2 weeks post op to assess proper healing and recovery from procedure. Documented by Camila Villagomez LPN on behalf of: John Redman DO documented in this encounter [facility] History and physical note 04-24-2021 Note Date & Type Note Facility 04-24-2021 Note [id number] #[id number]:127 [facility] Clinical Note 04-22-2021 Note Date & Type Note Facility 04-22-2021 Note Cystoscopy with Sten t Removal ? Voiding after the procedure: there may be some pain, burning, urgency, frequency and blood tinged urine following the procedure. These symptoms usually resolve within 2-5 days. Drink the amount of fluid it takes to keep the urine pink to yellow or clear in color. Drinking enough water and fluids will help to ease any discomfort after your procedure. ? If you are having problems that seem out of the ordinary, please call. ? If unable to contact your physician and you feel it is an emergency, go to the nearest emergency room or call 911 ? Diet ? you may resume your normal diet. ? Activity ? you may resume your normal activities ? Call if you have a fever over 100 degrees. [facility] Evaluation note Note Date & Type Note Facility Evaluation note Diagnosis Pre-op examination Request for sterilization documented in this encounter [facility] Evaluation note Note Date & Type Note Facility Evaluation note Diagnosis Well woman exam with routine gynecological exam Routine gynecological examination documented in this encounter [facility] Healthcare Summary Purpose Family History No Family History Records FoundNo Family History Records FoundNo Family History Records FoundNo Family History Records FoundNo Family History Records FoundNo Family History Records Found Advance Directives No Advanced Directives Records FoundNo Advanced Directives Records FoundNo Advanced Directives Records FoundNo Advanced Directives Records FoundNo Advanced Directives Records FoundNo Advanced Directives Records Found Additional Source Comments INFORMATION SOURCE (unrecogn ized section and content) DATE CREATED AUTHOR 08/05/2017 [facility] DATE CREATED AUTHOR AUTHOR'S ORGANIZ ATION 09/22/2020 [facility] DATE CREATED AUTHOR AUTHOR'S ORGANIZ ATION 04/28/2021 [facility] DATE CREATED AUTHOR AUTHOR'S ORGANIZ ATION 02/17/2022 [facility] DATE CREATED AUTHOR AUTHOR'S ORGANIZ ATION 01/24/2024 [facility] DATE CREATED AUTHOR AUTHOR'S ORGANIZ ATION 01/30/2024 [facility] Reason for Visit (unrecogniz ed section and content) Reason Comments Pre-op Visit Reason Comments Gynecologic Exam FOR RECORDS PERTAINING TO PATIENTS WHO ARE OR HAVE BEEN ENROLLED IN A CHEMICAL DEPENDENCY/SUBSTANCEABUSE PROGRAM, SOME INFORMATION MAY BE OMITTED. This clinical summary was aggregated from multiple sources. Caution should be exercised in using it in the provision of clinical care. This summary normalizes information from multiple sources, and as a consequence, information in this document may materially change the coding, format and clinical context of patient data. In addition, data may be omitted in some cases. CLINICAL DECISIONS SHOULD BE BASED ON THE PRIMARY CLINICAL RECORDS. [facility] [employer] [facility]. provides no warranty or guarantee of the accuracy or completeness of information in this document.
[2024-11-22 11:28] LABS: Hematocrit 40.1 % (36.0-48.0); Hemoglobin 13.4 g/dL (12.0-16.0); Immature Granulocytes Abs Auto 0.04 10^3/uL (0.00-0.03); Immature Granulocytes Pct Auto 0.5 % (0.0-0.5); Lymphocytes Absolute Auto 2.4 10^3/uL (1.2-3.8); Mean Corpuscular HGB Conc 33.4 g/dL (29.9-35.2); Mean Corpuscular Hemoglobin 30.7 pg (26.7-34.0); Mean Corpuscular Volume 92.0 fL (81.0-99.0); Platelet Count 207 10^3/uL (150-450); Red Blood Count 4.36 10^6/uL (4.20-5.40); White Blood Count 8.8 10^3/uL (4.0-11.0)
[2024-11-22 11:31] LABS: Glucose Urine UA NEGATIVE (NEGATIVE)
[2024-11-22 13:45] LABS: Cast Seen? NONE SEEN #/LPF (NONE SEEN); Crystals Seen? None Seen #/HPF (None Seen)
== END 2024-11-22 10:34 | disposition home or self-care (01) ==
LOC: LAB 10:37
PROVIDERS: PCP Nurse Practitioner Family; Visit Provider Nurse Practitioner Family
DX: R30.0 Dysuria (principal); R53.83 Other fatigue
CPT/HCPCS: 36415; 81001; 85025; 87086

== ENCOUNTER 2024-11-23 08:52 | Outpatient (OUT) | payer OTHER, SELFPAY ==
--- OUTSIDE RECORDS SUMMARY | 2024-11-23 08:56 | XMS_ITS | Encounter Summary ---
Author Organization [facility] Address [address] [place] [address] Care Team Providers Care Flight Purser Name Role Phone Unavailable Primary Care Provider Unavailabl e Encounter Details Date Type Department Care Team (Late Contact Info) Description 01/27/2024 Abstract [facility] Lucio PAINTER [address] [phone] Nas Redman DO [address] [place], [facility]11 Social History Tobacco Use Types Packs/Day Years [...] EST Office Visit [facility] PAINTER [address] [place] [address] Terri Nair PA [address] [place], [facility] documented as of this encounter Visit Diagnoses Not on filedocumented in this encounter
--- OUTSIDE RECORDS SUMMARY | 2024-11-23 08:56 | XMS_ITS | Encounter Summary ---
Author Organization [facility] Address [address] [place] [address] Care Team Providers Care Spray Gun Repairer Helper Name Role Phone Unavailable Primary Care Provider Unavailabl e Encounter Details Date Type Department Care Team (Late st Contact Info) Description 01/22/2024 Clinisync Result Encounter [facility] External Department Unsolicited John Redman DO [address] [place] [id number] Social History Tobacco Use Types Packs/Day Years [...] PM EST Office Visit [facility] PAINTER [address] [place] [address] Terri Nair PA [address] [place] [address] documented as of this encounter Procedures Procedure Name Priority Date/Time Associated Diagnosis Comments XR CHEST 2V 01/22/2024 7:48 AM EST documented in this encounter Results * XR CHEST 2V (01/22/2024 7:48 AM EST) Anatomical Region Laterality Modality Other 01/22/2024 7:48 AM EST Narrative 01/22/2024 7:50 AM EST The [address] [address] XRay Report Signed Patient: VALARIE ROBLEDO MR#: [id number] : 1990 Acct:[id number] Age/Sex: 33 / F ADM Date: 01/21/24 Loc: [facility] Attending Dr: John Redman D.O. Ordering Physician: John Redman D.O. Date of Service: 01/21/24 Procedure(s): XR chest 2V Accession Number(s): [id number] cc: DYLAN POPE ; John Redman D.O. The [place] [id number] Patient Name: VALARIE ROBLEDO MRN: [employer]:[id number] date: 1990 Sex: F Assigned Patient Location: [facility] Current Patient Location: Accession/Order Number: [id number] Exam Date: 01/21/2024 11:35 Report Date: 01/22/2024 07:48 At the request of: JOHN REDMAN Procedure: XR chest 2V PROCEDURE: XR chest 2V DATE: 01/21/2024 11:35 AM EST COMPARISONS: None. CLINICAL INDICATION: 33 years Female Preop exam FINDINGS: The cardiomediastinal silhouette and pulmonary vasculature are within normal limits. The lungs are clear. There is no evidence of pleural effusion or pneumothorax. XR/XR chest 2V IMPRESSION: Chest radiograph is within normal limits. Electronically authenticated by: WILBER SOMMERS Date: 01/22/2024 07:48 Dictated By: Wilber Sommers M.D. Signed By: 01/22/24 0750 DD/ 0748 TD/TT: House Officer: Procedure Note Radiology, Radiologist, - 01/22/2024 The [place] [id number] XRay Report Signed Patient: VALARIE ROBLEDO RMR#: [id number] : 1990Acct:[id number] Age/Sex: 33 / FADM Date: 01/21/24 Loc: PST Attending Dr: John Redman D.O. Ordering Physician: John Redman D.O. Date of Service: 01/21/24 Procedure(s): XR chest 2V Accession Number(s): [id number] cc: DYLAN POPE ; John Redman D.O. [address] [address] Patient Name: VALARIE ROBLEDO MRN: [id number] date: 1990 Sex: F Assigned Patient Location: [facility] Current Patient Location: Accession/Order Number: [id number] Exam Date: 01/21/2024 11:35 Report Date: 01/22/2024 07:48 At the request of: JOHN REDMAN Procedure: XR chest 2V PROCEDURE: XR chest 2V DATE: 01/21/2024 11:35 AM EST COMPARISONS: None. CLINICAL INDICATION: 33 years Female Preop exam FINDINGS: The cardiomediastinal silhouette and pulmonary vasculature are withinnormal limits. The lungs are clear. There is no evidence of pleural effusion or pneumothorax. XR/XR chest 2V IMPRESSION: Chest radiograph is within normal limits. Electronically authenticated by: WILBER SOMMERS Date: 01/22/2024 07:48 Dictated By: Wilber Sommers M.D. Signed By:01/22/24 0750 DD/ 0748 TD/TT: House Officer: John Redman DO [facility] Final Result documented in this encounter Visit Diagnoses Not on filedocumented in this encounter
--- OUTSIDE RECORDS SUMMARY | 2024-11-23 08:56 | XMS_ITS | Clinical Summary ---
Author Organization [facility] Address [address] [place] [address] Care Team Providers Care Clinical Application Specialist Name Role Phone Unavailable Primary Care Provider [...] PM EST Office Visit [facility] ESCUDEROGYEkaterina [address] [place] [phone] Terri Nair PA [address] [place], [facility] Insurance [employer]
--- OUTSIDE RECORDS SUMMARY | 2024-11-23 08:56 | XMS_ITS | Encounter Summary ---
Author Organization [facility] Address [address] [place] [address] Care Team Providers Care Government Documents Librarian Name Role Phone Unavailable Primary Care Provider Unavailabl e Encounter Details Date Type Department Care Team (Late Contact Info) Description 01/27/2024 Abstract [facility] Lucio PAINTER [address] [place] [phone] Nas Redman DO [address] [facility] [place], [facility]11 Social History Tobacco Use Types Packs/Day [...] EST Office Visit [facility] Lucio PAINTER [address] [place] [address] Terri Nair PA [address] [facility] [place], [facility]11 documented as of this encounter Visit Diagnoses Not on filedocumented in this encounter
--- OUTSIDE RECORDS SUMMARY | 2024-11-23 08:56 | XMS_ITS | Encounter Summary ---
Author Organization [facility] Address [address] [address] Care Team Providers Care Abrasive Worker Name Role Phone Unavailable Primary Care Provider Unavailabl e Encounter Details Date Type Department Care Team (Late Contact Info) Description 02/05/2024 Orders Only JJ PAINTER [address] [place] [address] [place] [phone] La Montoya MA [address] [place] [address] Social History Tobacco Use Types Packs/Day Years [...] PM EST Office Visit NOM[facility]essa PAINTER [address] [facility] [place] [phone] Terri Nair PA [address] [place], [place] [phone] documented as of this encounter Procedures Procedure [...]
[2024-11-23 09:48] LABS: Cholesterol 262 mg/dL (<=200); HDL Cholesterol 55 mg/dL (40-60); Triglycerides 309 mg/dL (<=150); VLDL CHOLESTEROL 61.8 mg/dL
== END 2024-11-23 08:53 | disposition home or self-care (01) ==
LOC: LAB 08:53
PROVIDERS: PCP Nurse Practitioner Family; Visit Provider Nurse Practitioner Family
DX: E16.1 Other hypoglycemia (principal); E78.5 Hyperlipidemia, unspecified
CPT/HCPCS: 36415; 80061; 83525